=== PATIENT | male | born 1960 | race Caucasian/White ===

== ENCOUNTER 2023-05-24 09:19 | Emergency (ER) | payer OTHER, SELFPAY ==
[2023-05-24 09:26] VITALS: BP 185/92
[2023-05-24 10:07] VITALS: BP 155/93
[2023-05-24 10:19] VITALS: BMI 26.4
[2023-05-24 10:29] LABS: % Basophils 1.1 % (0-2); % Eosinophils 1.6 % (0-6); % Immature Granulocytes 0.4 % (0-0.5); % Lymphocytes 21.9 % (20.5-51.1); % Monocytes 8.6 % (1.7-9.3); % Neutrophils 66.4 % (42.2-75.2); Absolute Basophils 0.1 10^3/uL (0-0.2); Absolute Eosinophils 0.1 10^3/uL (0-0.7); Absolute Lymphocytes 1.8 10^3/uL (1.2-3.4); Absolute Monocytes 0.7 10^3/uL (0.1-0.6); Absolute Neutrophils 5.4 10^3/uL (1.4-6.5); Hematocrit 46.6 % (39.0-52.0); Hemoglobin 16.1 g/dL (13.0-18.0); Mean Corp Hgb Conc. 34.5 g/dL (33.0-37.0); Mean Corpuscular Hgb 30.1 pg (27.0-31.0); Mean Corpuscular Volume 87.3 fL (80.0-94.0); Mean Platelet Volume 9.9 fL (7.4-10.4); Nucleated Red Blood Cells % 0 % (-); Platelet Count 331 10^3/uL (130-400); Red Blood Cell Count 5.34 10^6/uL (4.70-6.10); Red Cell Dist. Width 13.1 % (11.5-14.5); White Blood Cell Count 8.1 10^3/uL (4.8-10.8)
--- NOTE | 2023-05-24 10:32 | ED.GENMED ---
History of Present Illness
General
Chief Complaint: Heart Rate Problem
Source: patient and spouse
Exam Limitations: none
Time Seen by Provider: 05/24/23 09:46
Nursing documentation reviewed up to this point in time: agreed with
Travel History
Have you had any contact with someone who has COVID-19?: No
Do you have any symptoms of coronavirus? Fever > 100 degrees, chills, cough, shortness of breath, sore throat, loss of taste or smell, muscle aches, or headache?: No
History of Present Illness
History of Present Illness:
62-year-old male with past medical history of paroxysmal A-fib most recently in A-fib 1 year ago was previously on metoprolol and Eliquis but taken off of this. Also history of hypothyroidism presenting to the emergency department today with
concerns of palpitations that feels similar to previous episodes of A-fib.
Past History
Past History
ED Past Medical History: Arrthythmia (Paroxysmal atrial fibrillation) and Other (Hyperthyroidism)
ED Past Surgical History: None
Social History
Tobacco: Non-smoker
Drug: None
Review of Systems
Review of Systems
Allergies reviewed?: Yes
All Other Systems: ROS reviewed and negative except as documented in HPI and ROS
Phy Exam
Physical Exam
Physical Exam:
GENERAL: Alert , in no apparent distress
EYE: pupils equal and reactive
NECK: Supple, no significant adenopathy.
ENT: o/p clr, mmm.
CARDIAC: Regular rate and rhythm .
LUNGS: Clear breath sounds bilaterally, no acute respiratory distress, no wheezes/rales/rhonchi
ABDOMEN: Soft, without focal tenderness, no r/g, no cvat
NEUROLOGICAL: Alert and oriented, no focal neuro deficits
SKIN: Warm and dry, skin intact.
MUSCULOSKELETAL: No edema, well perfused.
PSYCH: Normal and appropriate interaction.
Course
Orders/Labs/Results
Orders:
Orders
05/24/23 09:21
ECG [Electrocardiogram (*1)] Urgent
Reason for Study: Palpitations
05/24/23 09:22
EKG- Treatment ONCE
05/24/23 10:16
BMP [Basic Metabolic Panel] Urgent
CBC/With Diff [Complete Blood Count/With Diff] Urgent
TSH Reflex To Free T4 Urgent
Abnormal Lab Results
05/24/23
10:16
Absolute Monos (auto) 0.7 H 10^3/uL
(0.1-0.6)
BUN 21 H mg/dl
(9-20)
Glucose 100 H mg/dl
(70-99)
05/24/23 10:16
05/24/23 10:16
Vital Signs
Initial and Last Documented VS:
Initial Vital Signs
Temp Pulse Resp BP Pulse Ox
97.9 F 90 18 185/92 99
05/24/23 09:26 05/24/23 09:26 05/24/23 09:26 05/24/23 09:26 05/24/23 09:26
Last Documented Vital Signs
Temp Pulse Resp BP Pulse Ox
97.9 F 79 11 155/93 97
05/24/23 09:26 05/24/23 11:30 05/24/23 11:30 05/24/23 10:07 05/24/23 11:30
MDM/Problems Addressed
MDM/Problems Addressed:
62-year-old male presenting to the emergency department today with concerns of an episode of what he believes was A-fib asymptomatic upon arrival here normal EKG in sinus rhythm. He comes this feels identical to previous episode of A-fib previously
was on Eliquis and metoprolol but was discontinued on this about a year ago. Follows up with [facility] [place]. The case was discussed with patient's primary office equipment mechanic Dr. Glez. He claims that he will have him follow-up in
short order but does not recommend starting any additional medications. Return precautions were thoroughly discussed with the patient. Patient was not in A-fib throughout ER stay and appears very well stable for outpatient management discharge.
*Critical Care Note
Total Time (30-74mins, 75-104mins- exclusive of procedures): Not Applicable
ED Attending Note
-
Portions of this chart may have been created with voice recognition software.� Occasional wrong word or��sound alike� substitutions may have occurred due to the inherent limitations of voice recognition software.
Discharge Plan
Departure
Patient Disposition: Home (Routine Discharge)
Date of Disposition: 05/24/23
Time of Disposition: 11:45
Patient with high blood pressure during this ER visit?: No
Condition: Good
Covid-19: Not Applicable
Discharge Problem:
Atrial fibrillation
Instructions: Atrial Fibrillation (DC)
Prescriptions:
No Action
doxycycline hyclate 100 mg capsule
100 mg PO Q12H
aspirin 81 mg Tablet,Delayed Release (Dr/Ec)
81 mg PO DAILY
lorazepam 0.5 mg Tablet
0.5 mg PO TID PRN (Reason: anxiety)
Patient Comments:
09/01/2021: last filled 07/19/21, 90 tabs for 30 days from [id number]
methylprednisolone 4 mg tablets,dose pack
4 mg PO .TAPER
Eliquis 5 mg tablet
5 mg PO BID Qty: 60 0RF
metoprolol tartrate 25 mg tablet
25 mg PO BID Qty: 60 0RF
methimazole 5 mg tablet
5 mg PO Q8H Qty: 90 0RF
Referrals:
Kirby Faith MD [Family Provider] -
Activity Restrictions/Additional Instructions:
You came to the emergency department today with concerns of likely an episode of atrial fibrillation. Your workup here was very reassuring. Please avoid excessive caffeine use and follow-up closely with your office equipment mechanic for further assessment.
Return to the emergency department for any worsening, new or concerning symptoms.
Interventions
Interventions:
*Risk Screen - Suicide Last Done: 05/24/23 09:26
*General Assessment Last Done: 05/24/23 09:26
*Neglect/Abuse Screening Last Done: 05/24/23 09:26
*ED COVID-19 Vaccine History Last Done: 05/24/23 10:18
Discharge Date and Time
Print Language: ICELANDIC
[2023-05-24 10:49] LABS: Blood Urea Nitrogen 21 mg/dl (9-20); Calcium 9.8 mg/dl (8.4-10.2); Carbon Dioxide 25 mmol/L (22-30); Chloride 104 mmol/L (98-107); Estimated Creatinine Clearance 78 ml/min; Glucose 100 mg/dl (70-99); Potassium 4.1 mmol/L (3.5-5.1); Sodium 136 mmol/L (135-145); eGFR > 60.00
[2023-05-24 11:20] LABS: TSH Reflex To Free T4 2.52 uIU/ml (0.47-4.68)
== END 2023-05-24 11:45 | disposition home or self-care (01) ==
LOC: EMR 09:19
PROVIDERS: Physician Assistant; EMERGENCY PHYSICIAN Emergency Medicine; FAMILY PHYSICIAN Family Medicine
DX: I48.91 Unspecified atrial fibrillation (principal); E03.9 Hypothyroidism, unspecified
CPT/HCPCS: 99283; 80048; 84443; 85025; 93005